=== PATIENT | female | born 1955 ===

== ENCOUNTER 2017-04-23 12:08 | Day surgery (SDC) | payer BC ==
[~2017-04-23] VITALS: Ht 160 cm; Wt 65.1 kg
[~2017-04-23 12:08] MED LIST: Budeprion Xl300 MG; Lamictal200 MG; OTEZLA30 MG PO; ZIPR60
== END 2017-04-23 14:28 | disposition home or self-care (01) ==
LOC: ORSCSDS 12:08
PROVIDERS: Internal Medicine Gastroenterology
PROC: 0DBP8ZX Excision of Rectum, Via Natural or Artificial Opening Endoscopic, Diagnostic (ICD-10-PCS; principal; 2017-04-23 14:00)
DX: Z12.11 Encounter for screening for malignant neoplasm of colon (principal); K64.8 Other hemorrhoids; G47.33 Obstructive sleep apnea (adult) (pediatric); R73.03 Prediabetes; F31.9 Bipolar disorder, unspecified; Z79.899 Other long term (current) drug therapy
CPT/HCPCS: 88305

== ENCOUNTER → 2018-06-30 | Outpatient (CLI) | payer BC | END | disposition home or self-care (01) | LOC: LAB SHORT 10:09 → PLD 10:09 | DX: D04.4 Carcinoma in situ of skin of scalp and neck (principal); C44.41 Basal cell carcinoma of skin of scalp and neck; L57.0 Actinic keratosis | CPT/HCPCS: 88305 ==

== ENCOUNTER → 2018-07-23 | Outpatient (CLI) | payer BC | END | disposition home or self-care (01) | LOC: LAB SHORT 08:49 → PLD 08:49 | DX: C44.41 Basal cell carcinoma of skin of scalp and neck (principal) | CPT/HCPCS: 88305 ==

== ENCOUNTER → 2019-05-25 | Outpatient (CLI) | payer BC | LOC: PLD 14:38 → LAB SHORT 14:38 | DX: N90.3 Dysplasia of vulva, unspecified (principal) | CPT/HCPCS: 88305; 88312 ==

== ENCOUNTER → 2019-12-01 | Outpatient (CLI) | payer BC | END | disposition home or self-care (01) | LOC: LAB SHORT 13:39 → PLD 13:39 | DX: N90.1 Moderate vulvar dysplasia (principal) | CPT/HCPCS: 88305 ==

== ENCOUNTER → 2020-05-31 | Outpatient (CLI) | payer BC ==
[2020-06-02 17:09] LABS: HPV 16 Negative (Negative); HPV 18 Negative (Negative); HPV OTHER HR TYPES Negative (Negative)
== END | disposition home or self-care (01) ==
LOC: LAB SHORT 11:09 → LAB 11:09 → PLD 11:09
PROVIDERS: Obstetrics & Gynecology
DX: Z01.419 Encounter for gynecological examination (general) (routine) without abnormal findings (principal)
CPT/HCPCS: 87624; G0123

== ENCOUNTER → 2020-09-20 | Outpatient (CLI) | payer BC | LOC: LAB SHORT 13:24 → LAB 13:24 | DX: D48.5 Neoplasm of uncertain behavior of skin (principal); C44.41 Basal cell carcinoma of skin of scalp and neck; D04.5 Carcinoma in situ of skin of trunk | CPT/HCPCS: 88305 ==

== ENCOUNTER → 2020-11-02 | Outpatient (CLI) | payer BC | LOC: LAB SHORT 08:00 → LAB 08:00 | DX: L03.811 Cellulitis of head [any part, except face] (principal) | CPT/HCPCS: 87070; 87077; 87186; 87205 ==

== ENCOUNTER → 2021-01-04 | Outpatient (CLI) | payer BC | LOC: LAB SHORT 10:55 → LAB 10:55 | DX: D48.5 Neoplasm of uncertain behavior of skin (principal); L82.1 Other seborrheic keratosis | CPT/HCPCS: 88305 ==

== ENCOUNTER → 2022-06-10 | Outpatient (CLI) | payer BC | END | disposition home or self-care (01) | LOC: LAB SHORT 09:59 → PLD 09:59 | DX: C44.41 Basal cell carcinoma of skin of scalp and neck (principal); D04.39 Carcinoma in situ of skin of other parts of face | CPT/HCPCS: 88305 ==

== ENCOUNTER → 2023-10-04 | Outpatient (CLI) | payer MEDICARE, BC ==
[~2023-10-04] MED LIST changes: +FINASTERIDE1 MG PO; +INGREZZA60 MG PO; +SKYRIZI PE150 MG/1 M SQ
== END | disposition home or self-care (01) ==
LOC: LAB SHORT 08:15 → LAB 08:15
DX: N39.0 Urinary tract infection, site not specified (principal)
CPT/HCPCS: 87086

== ENCOUNTER → 2024-01-20 | Outpatient (CLI) | payer MEDICARE, BC ==
[2024-01-28 11:00] LABS: HPV HIGH RISK BY TMA Not Detected; HPV SOURCE Cervical
== END ==
LOC: LAB 09:31 → LAB SHORT 09:31
PROVIDERS: Obstetrics & Gynecology
DX: Z01.419 Encounter for gynecological examination (general) (routine) without abnormal findings (principal)
CPT/HCPCS: 87624; G0123

== ENCOUNTER → 2024-07-22 | Outpatient (CLI) | payer MEDICARE, BC ==
[2024-07-22 17:28] LABS: Appearance, Urine Clear (Clear); Bilirubin, Urine Neg (Neg); Blood, Urine 1+ (Neg); Color, Urine Yellow (P-Yellow); Glucose Qualitative, Urine Neg (Neg); Ketones, Urine Neg (Neg); Leukocyte Esterase, Urine Neg (Neg); Nitrite, Urine Neg (Neg); Protein, Urine Neg (Neg); Specific Gravity, Urine 1.015 (1.003-1.022); Urobilinogen, Urine NORM (Normal)
[2024-07-22 17:50] LABS: Bacteria Few /hpf; Red Blood Cells, Urine 0-2 /hpf (0-2); Squamous Epithelial Cells Not Seen /hpf (Few); White Blood Cells, Urine 0-2 /hpf (0-5)
== END | disposition home or self-care (01) ==
LOC: LAB 11:35 → LAB SHORT 11:35
PROVIDERS: Registered Nurse
DX: N32.81 Overactive bladder (principal); N30.00 Acute cystitis without hematuria
CPT/HCPCS: 81001